=== PATIENT | male | born 1980 | race African-American/Black ===

== ENCOUNTER 2021-05-17 03:07 | Emergency (ER) | payer OTHER ==
[~2021-05-17] VITALS: Ht 172.7 cm; Wt 163.3 kg
--- NOTE | 2021-05-17 03:20 | NUR ---
SYLVIE 839 FROM PRISON FOR C/O H/A X 3 DAYS. W/ HY OF SPINAL MENINGITIS AND RESUME SPECIALIST SHUNT PLACEMENT AT AGE OF 6 WEEKS. DENIED N/V. NO FACIAL DROOP OR SLURRED SPEECH NOTED. PT WAS ASSISTED TO BED 7 ER, ON MONITOR. WILL CONT TO MONITRO WHILE AWAITING FOR MD'S EVAL
[2021-05-17] MEDS ORDERED: ONDANSETRON HCL/PF 4 MG/2 ML VIAL IVP ONE (03:30)
[2021-05-17] MEDS ORDERED: MORPHINE SULFATE INJ 2 MG/ML DISP.SYRIN IV ONE (03:30)
[2021-05-17] MEDS ORDERED: MORPHINE SULFATE INJ 4 MG/ML DISP.SYRIN ONE (03:33)
[2021-05-17] MEDS ORDERED: ONDANSETRON HCL/PF 4 MG/2 ML VIAL ONE (03:33)
--- NOTE | 2021-05-17 03:40 | NUR ---
SNF ADDRESS: [id number] [facility] [place]
--- NOTE | 2021-05-17 03:41 | NUR ---
PT WAS PICKED UP FOR CT
--- NOTE | 2021-05-17 03:42 | NUR ---
Nereida millan in [facility] - 05/17/21 at 0342 by CINTHIA PT TRANSPORTED TO RADIOLOGY FOR CT.
[2021-05-17 03:43] LABS: BASOPHILS # (AUTO) 0.1 K/uL (0.0-0.2); EOSINOPHILS % (AUTO) 2.4 % (0.0-6.0); HEMATOCRIT 39 % (39-51); HEMOGLOBIN 13.2 g/dL (13.5-17.5); LYMPHOCYTES # (AUTO) 1.7 K/uL (0.8-4.8); MEAN CORPUSCULAR HGB CONC 34 g/dl (31.0-36.0); MEAN CORPUSCULAR VOLUME 86 fL (80-96); MONOCYTES # (AUTO) 0.8 K/uL (0.1-1.30); MONOCYTES % (AUTO) 13.7 % (2.0-12.0); NEUTROPHILS # (AUTO) 3.3 K/uL (1.8-8.9); NEUTROPHILS % (AUTO) 54.9 % (43.0-81.0); PLATELET COUNT (AUTO) 200 K/uL (150-450)
[2021-05-17 03:52] LABS: CALCIUM, SERUM 8.9 mg/dL (8.5-10.1); CREATININE 0.9 mg/dL (0.6-1.3); POTASSIUM 3.9 mmol/L (3.5-5.1)
[2021-05-17 03:54] LABS: ALBUMIN 3.6 g/dL (3.4-5.0); BILIRUBIN,DIRECT 0.1 mg/dL (0.0-0.2); BILIRUBIN,TOTAL 0.5 mg/dL (0.2-1.0); TOTAL PROTEIN, SERUM 8.3 g/dL (6.4-8.2)
--- NOTE | 2021-05-17 04:53 | NUR ---
DELICIA MEDINA TALKING TO RADIOLOGIST REGARDING CT HEAD RESULT.
--- NOTE | 2021-05-17 07:01 | NUR ---
IS THE FAX FOR [facility]. REQUESTING FACESHEET, COVID RESULT, AND CLINICAL DATA WHEN READY.
--- NOTE | 2021-05-17 07:10 | NUR ---
CLINICAL DATA AND FACESHEET FAXED OVER TO [facility]. AWAITING COVID RESULT BEFORE FAXING.
--- NOTE | 2021-05-17 11:24 | NUR ---
PT IN BED RESTING WITH EYES CLOSE. NO DISTRESS NOTED. VS TAKEN
--- NOTE | 2021-05-17 12:14 | NUR ---
CALLED TO FOLLOW UP WITH [facility]. SPOKE TO BRET AND AT THE MOMENT WE ARE STILL WAITING ON A BED ASSIGNMENT. WILL CALL US BACK WHEN THEY HAVE INFORMATION.
--- NOTE | 2021-05-17 13:49 | NUR ---
RECEIVED A CALL FROM PAULA FROM [facility]. PT WILL BE GOING TO ROOM 1426. NUMBER FOR REPORT IS [phone] HALL IS THE ACCEPTING. WE WILL ARRANGE TRANSPORT TO [place].
--- NOTE | 2021-05-17 14:01 | NUR ---
CALLED [facility] FOR TRANSPORT TO [facility]. ETA 60-75 MINUTES.
--- NOTE | 2021-05-17 14:31 | NUR ---
REPORT GIVEN TO CLAY NOWAK FOR VERONIKA AT THE [facility]
--- NOTE | 2021-05-17 16:19 | NUR ---
[facility] [address] AT BEDSIDE BUT UNABLE TO TRANSPORT PT TO [facility] D/P PT IS BARIATRIC AND [facility] WILL NOT ACCOMODATE PT.
--- NOTE | 2021-05-17 16:31 | NUR ---
CALLED [id number] TO ARRANGE BARIATRIC TRANSPORT, RES#[id number] ETA TO FOLLOW
--- NOTE | 2021-05-17 17:30 | NUR ---
RECEIVED A CALL FROM NICHOLE FROM CALL THE CAR. ETA FOR AMBULANCE WILL BE AT 1900 WITH [facility].
--- NOTE | 2021-05-17 19:42 | NUR ---
[facility] 45-1HR.
--- NOTE | 2021-05-17 21:09 | NUR ---
[facility] 617 AT BEDSIDE FOR PT TRANSPORT TO [facility]. REPORT GIVEN TO EMT. PT IS IN STABLE CONDITION FOR TRANSORT.
[2021-05-17 21:20] VITALS: BP 141/75
== END 2021-05-17 21:26 | disposition short-term general hospital (02) ==
LOC: ER 03:09
DX: G91.9 Hydrocephalus, unspecified (principal); Z98.2 Presence of cerebrospinal fluid drainage device; R51.9 Headache, unspecified; Z59.0 Homelessness; H53.149 Visual discomfort, unspecified; R11.0 Nausea; E66.01 Morbid (severe) obesity due to excess calories; Z68.43 Body mass index [BMI] 50.0-59.9, adult; Z20.822 Contact with and (suspected) exposure to COVID-19; I10 Essential (primary) hypertension; Z86.61 Personal history of infections of the central nervous system
CPT/HCPCS: 36415; 70360; 70450; 71045; 71250; 74018; 80048; 80076; 85025; 85730; 87426; 96374; 96375; 99291; C9803; J2270; J2405

== ENCOUNTER 2022-03-31 08:20 | Emergency (ER) | payer OTHER ==
[~2022-03-31] VITALS: Ht 172.7 cm; Wt 158.8 kg
--- NOTE | 2022-03-31 08:32 | NUR ---
[id number] FRM HMLESS CUSTODIAL,C/O DIZZINESS, HEADACHE & NAUSEA SINCE LAST NIGHT, SHUNT PLACED 3DAYS AGO, BS 138. TO ER BED 14, HOOKED TO MONITOR, CHANGED TO HOSP GOWN, WARM BLANKET PROVIDED, PATIENT AAO x 4. BREATHING EVEN AND UNLABORED. AWAITING MD OLIVIER.
--- NOTE | 2022-03-31 09:06 | NUR ---
DR KENDALL AT BEDSIDE
--- NOTE | 2022-03-31 09:22 | NUR ---
Awake and alert respration spont and easy
--- NOTE | 2022-03-31 09:30 | NUR ---
PT TAKEN TO CT.
[2022-03-31 10:18] LABS: BASOPHILS % (AUTO) 0.4 % (0.0-2.0); EOSINOPHILS % (AUTO) 0.7 % (0.0-6.0); HEMATOCRIT 37 % (39-51); HEMOGLOBIN 12.1 g/dL (13.5-17.5); LYMPHOCYTES # (AUTO) 0.7 K/uL (0.8-4.8); MEAN CORPUSCULAR HGB CONC 33 g/dl (31.0-36.0); MEAN CORPUSCULAR VOLUME 80 fL (80-96); MONOCYTES # (AUTO) 0.5 K/uL (0.1-1.30); MONOCYTES % (AUTO) 7.5 % (2.0-12.0); NEUTROPHILS # (AUTO) 5.4 K/uL (1.8-8.9); NEUTROPHILS % (AUTO) 81.4 % (43.0-81.0); PLATELET COUNT (AUTO) 205 K/uL (150-450); RED BLOOD CELL COUNT(AUTO) 4.63 MIL/uL (4.5-6.0); WHITE BLOOD COUNT (AUTO) 6.6 K/uL (4.3-11.0)
[2022-03-31 10:25] LABS: CALCIUM, SERUM 8.7 mg/dL (8.5-10.1); CREATININE 0.9 mg/dL (0.6-1.3); POTASSIUM 3.9 mmol/L (3.5-5.1)
--- NOTE | 2022-03-31 10:40 | NUR ---
PAGED DR. KIRAN. VIDEO IMAGES SENT.
--- NOTE | 2022-03-31 12:54 | NUR ---
covid 19 antigen specimen collected and sent to lab
--- NOTE | 2022-03-31 12:54 | NUR ---
GIGI ULRICH SENT TO LAB
--- NOTE | 2022-03-31 13:35 | NUR ---
wating for medicale floor bed
--- NOTE | 2022-03-31 13:43 | NUR ---
[facility] MANAGEMENT CALLED [facility] IN [place] OF PT TO VP,UNABLE TO HELP PER MARGARITO
--- NOTE | 2022-03-31 14:15 | NUR ---
DR RUSTY THOMPSON PAGED THRU SARAH THRU OFFICE
--- NOTE | 2022-03-31 16:18 | NUR ---
DR THOMPSON'S OFFICE CALLED AGAIN AND ACCORDING TO SARAH, DR THOMPSON IS NOT SHELL FISHERMAN AND MR MONTOYA IS NOT HIS PATIENT. PATIENT WAS IN [facility] ER AT THAT TIME THAT'S WHY HE TOOK CARE OF THE PATIENT.
--- NOTE | 2022-03-31 16:29 | NUR ---
DR EMERSON SPEAKING W DOCTOR DOOLEY OF [facility]
--- NOTE | 2022-03-31 16:31 | NUR ---
DR DOOLEY CALLED AT [phone],[facility]PITAL[facility],SPOKE WITH DR EMERSON,WILL ACCEPT PATIENT IF DR THOMPSON WILL ACCEPT
--- NOTE | 2022-03-31 16:40 | NUR ---
PT PULL OUT IV LINE
--- NOTE | 2022-03-31 16:41 | NUR ---
DR THOMPSON CALLED,HE WANTS THE NEURO SX CLIENT SERVICES DIRECTOR CALLED INSTEAD
--- NOTE | 2022-03-31 16:45 | NUR ---
NEURO SX ON-CALL, DR ANDERSEN PAGED AT [phone] EMERSON
--- NOTE | 2022-03-31 17:01 | NUR ---
CALL FROM DR ANDERSEN'S OFFICES SAYING THAT DR ANDERSEN "IS DECLINING"
--- NOTE | 2022-03-31 17:47 | NUR ---
CALLED [facility], PER ROLANDO NO BEDS AVAILABLE
--- NOTE | 2022-03-31 18:00 | NUR ---
CALLED [facility], SPOKE TO LACHELLE FAXED FACESHEET AND CLINICALS
--- NOTE | 2022-03-31 18:06 | NUR ---
CALL BACK FROM ANSHU WHO SPOKE WITH DR ANDERSEN, HE TOLD HER THAT PATIENT NEED HIGHER LEVEL OF CARE TRANSFER BECAUSE THEY HANDLE THE CASE OVER AT [facility] BECAUSE HIS PREVIOUS NECK SURGERIES MADE IT TOO COMPLICATED, DR EMERSON INFORMED.
--- NOTE | 2022-03-31 18:08 | NUR ---
CALLED [facility] TRANSFER LINE. FAXED CLINICALS AND PERTINENT DOCUMENTS. WAITING CALLBACK AT THIS TIME.
--- NOTE | 2022-03-31 18:19 | NUR ---
PT ASLEEPY NO CHANGE IN NURO STATES NO WEEKNESS
--- NOTE | 2022-03-31 18:33 | NUR ---
FAXED CLINICALS AND PERTINENT RESULTS TO [facility]. WAITING FOR CALL BACK AT THIS TIME.
--- NOTE | 2022-03-31 19:39 | NUR ---
HAND OFF TO BRINA WILLIAMSON
--- NOTE | 2022-03-31 19:46 | NUR ---
CALLED [facility] SPOKE TO KIT STATES PT NEEDS TO GO TO HOSPITAL WHERE PROCEDURE WAS ORIGINALLY DONE, DECLINED CASE
--- NOTE | 2022-03-31 19:59 | NUR ---
RECIEVED CALL FROM LACHELLE AT [facility]. INFORMED ME THAT DR CRISTNIA HAS DENIED THE PATIENT DUE TO BEING AT [facility].
--- NOTE | 2022-03-31 21:35 | NUR ---
CALLED [facility], SPOKE TO MAGALY, FAXED FACESHEET AND CLINICALS TO FAX [phone], AWAITING CALL BACK
--- NOTE | 2022-03-31 22:33 | NUR ---
PER MAGALY WITH [facility], NEUROSURGEON DECLINED PATIENT
--- NOTE | 2022-04-01 07:35 | NUR ---
RECEIVE PT FROM BRINA WILLIAMSON PT ASLEEPY RESPIRATION SPONT AND EASY WATING FOR PLACEMENT
--- NOTE | 2022-04-01 08:48 | NUR ---
PT HAD BLACK STOOL LAGMANUEL KENDALL AT BED MISSY SPOOK WITH PT DINESES PAIN
--- NOTE | 2022-04-01 10:00 | NUR ---
INCONTENT URIN AND STOOL CLEAN PT DONE KEEP COMFORTABLE
--- NOTE | 2022-04-01 11:00 | NUR ---
[facility]
--- NOTE | 2022-04-01 12:44 | NUR ---
CALLED [facility] SPOKE TO HERMANN, STATES NO CAPACITY FOR HIGHER LEVEL OF CARE
--- NOTE | 2022-04-01 13:57 | NUR ---
ASLEEPY NO PAIN NO COMPLAIN
--- NOTE | 2022-04-01 14:49 | NUR ---
UA SENT TO LAB
--- NOTE | 2022-04-01 14:58 | NUR ---
DEYA DAVIS (MOTHER) [phone]
--- NOTE | 2022-04-01 15:00 | NUR ---
Mother came in to see pt both pt and parent aware of plan of care
[2022-04-01 15:12] LABS: BILIRUBIN,URINE NEGATIVE (NEGATIVE); COLOR,URINE YELLOW (YELLOW); LEUKOCYTE ESTERASE ,URINE NEGATIVE (NEGATIVE); NITRITE, URINE NEGATIVE (NEGATIVE); PH,URINE 6.5 (5.0-8.0); PROTEIN,URINE TRACE mg/dl (NEGATIVE); UGLUCOSE NEGATIVE (NEGATIVE); UROBILINOGEN,URINE 0.2 EU/dL (0.2)
--- NOTE | 2022-04-01 15:24 | NUR ---
DWAYNE ARMAS ( MOTHER ) [phone]
[2022-04-01 16:02] LABS: BACTERIA,URINE None seen /HPF (None Seen); MUCUS,URINE Few /LPF (None Seen); RBC,URINE 51-80 /HPF (0-2); SPERM,URINE Few /HPF (None Seen); SQUAMOUS EPITHELIAL CELL,UR 0-2 /HPF (None Seen); WBC,URINE 0-2 /HPF (0-3)
--- NOTE | 2022-04-01 18:10 | NUR ---
NO BUSBY PT CONDITION OR NURO STATES WATING FOR TRANSFER TO ACCEPTING HOSPITALE
--- NOTE | 2022-04-01 19:35 | NUR ---
HAND OFF TO JABIER WILLIAMSON
--- NOTE | 2022-04-02 08:00 | NUR ---
Sleeping, Respirations even/unlabored in NO distress
--- NOTE | 2022-04-02 13:22 | NUR ---
Pt wanting to sign against medical advise Aware of repercussions of leaving (including ) adamant Pt signed AMA form. He called Family and they are here for pickup. Dr Vera notified/aware. All records given to Aunt. Assisted to w/c and discharged
[2022-04-02 13:25] VITALS: BP 114/60
[2022-04-05] MEDS ORDERED: POTASSIUM CL. PREMIX PERIPHER. 50 ML ONE (18:50)
== END 2022-04-02 13:26 | disposition left against medical advice (07) ==
LOC: ER 08:30
DX: T85.09XA Other mechanical complication of ventricular intracranial (communicating) shunt, initial encounter (principal); G91.9 Hydrocephalus, unspecified; I10 Essential (primary) hypertension; Z59.01 Sheltered homelessness; E11.9 Type 2 diabetes mellitus without complications; R11.0 Nausea; Z53.29 Procedure and treatment not carried out because of patient's decision for other reasons
CPT/HCPCS: 36415; 70450; 70490; 71045; 71250; 74176; 80048; 85025; 85730; 87081; 87426; 93005; 99291; C9803